=== PATIENT | male | born 1980 | race Caucasian/White ===

== ENCOUNTER → 2023-05-07 15:06 | Outpatient (REF) | payer OTHER, SELFPAY | LOC: HWRAD 15:06 | PROVIDERS: ATTENDING PHYSICIAN Internal Medicine Endocrinology, Diabetes & Metabolism; FAMILY PHYSICIAN Nurse Practitioner Family | DX: C73 Malignant neoplasm of thyroid gland (principal) | CPT/HCPCS: 76536 ==

== ENCOUNTER → 2024-05-04 14:12 | Outpatient (REF) | payer BC, SELFPAY | LOC: HWRAD 14:12 | PROVIDERS: ATTENDING PHYSICIAN Internal Medicine Endocrinology, Diabetes & Metabolism; FAMILY PHYSICIAN Nurse Practitioner Family | DX: C73 Malignant neoplasm of thyroid gland (principal) | CPT/HCPCS: 76536 ==

== ENCOUNTER → 2024-09-08 14:38 | Outpatient (REF) | payer BC, SELFPAY | LOC: HWRAD 14:38 | PROVIDERS: ATTENDING PHYSICIAN Internal Medicine Endocrinology, Diabetes & Metabolism; FAMILY PHYSICIAN Nurse Practitioner Family | DX: C73 Malignant neoplasm of thyroid gland (principal) | CPT/HCPCS: 76536 ==

== ENCOUNTER 2024-12-19 08:27 | Emergency (ER) | payer BC, SELFPAY ==
[2024-12-19 08:28] VITALS: BP 148/91
--- NOTE | 2024-12-19 08:49 | ED.SKININJ ---
HPI-Injury
General
Chief Complaint: Bite
Source: patient
Time Seen by Provider: 12/19/24 08:36
History of Present Illness-Injury
Initial Injury comments:
44-year-old male who states that he was in [place], walking into a parking garage, and saw a woman sitting down on the curb with her dog. He leaned down to pet the dog, and when he was walking away the dog snapped at him, causing injury to
bilateral legs. He did not describe the dog as poorly behaved, aggressive, etc. He did not inquire if the dog was up-to-date on immunizations. Patient looked in his portal and confirmed that he is up-to-date on tetanus. He is concerned about
potential exposure to rabies. This event happened approximately 2 weeks ago. The area of bite x 2 is nontender without drainage. He denies pain, fever, or other complaints.
Past History
Past History
ED Past Medical History: HTN and Other (Thyroid cancer)
ED Past Surgical History: Other (Hernia, thyroid)
Social History
Tobacco: Non-smoker
Alcohol: Occasional
Drug: None
Personal:
Phy Exam
Physical Exam
Physical Exam:
GENERAL: Alert , in no apparent distress
EYE: pupils equal and reactive
NECK: Supple, no significant adenopathy.
ENT: o/p clr, mmm.
CARDIAC: Regular rate and rhythm .
LUNGS: Clear breath sounds bilaterally, no acute respiratory distress, no wheezes/rales/rhonchi
ABDOMEN: Soft, without focal tenderness, no r/g, no cvat
NEUROLOGICAL: Alert and oriented, no focal neuro deficits
SKIN: Warm and dry, skin intact. At each thigh, there are 2 pinpoint areas of scab/healing without assoc erythema/warmth/drainage/ttp/streaking/fluctuance or other abnl
MUSCULOSKELETAL: No edema, well perfused.
PSYCH: Normal and appropriate interaction.
Course
Orders/Labs/Results
Orders:
Orders
12/19/24 09:06
Rabies Immune Globulin/Pf [HyperRAB] 2,076 unit IM NOW STA
12/19/24 10:15
Rabies Immune Globulin/Pf [HyperRAB] 2,076 unit IM NOW STA
Rabies Vaccine (Pcec)/Pf [Rabavert Rabies Vacc W-Diluent] 2.5 unit IM .ONCE ONE
Vital Signs
Initial and Last Documented VS:
Initial Vital Signs
Temp Resp BP Pulse Ox
98.4 F 16 148/91 98
12/19/24 08:28 12/19/24 08:28 12/19/24 08:28 12/19/24 08:28
Last Documented Vital Signs
Temp Resp BP Pulse Ox
98.4 F 16 148/91 98
12/19/24 08:28 12/19/24 08:28 12/19/24 08:28 12/19/24 08:55
*Pulse Oximetry
SaO2: 98
Oxygen Mode of Delivery: Room air
Patient hypoxic: no
*Critical Care Note
Total Time (30-74mins, 75-104mins- exclusive of procedures): Not Applicable
Update Note
Update Note:
Patient presents to the Emergency Department with dog bite
Number and Complexity of Problems Addressed at the Encounter
� Chronic conditions affecting care:
� Acute Exacerbation and/or Progression of Chronic Illness:
� Differential Diagnosis includes: But not limited to rabies exposure, infected wound, etc. etc.
Amount and/or Complexity of Data to be Reviewed and Analyzed
� I performed an independent evaluation of and my interpretation is:
EKG:
CT:
Xrays:
Laboratory Studies:
Other:
� Review of other/old records reveals:
� Clinical information was obtained by an independent historian:
� Prescriptions/Medications Considered but not given:
� Further testing considered but not performed:
Risk of Complications and/or Morbidity or Mortality of Patient Management
� Social determinants of health affecting care:
� Discussion with other providers (PCP, Hospitalists, Consultants, etc):
� Escalation of care including admission/observation vs risk of discharge considered: Patient did show me photographs from the area of wounds taken the next day after the event, there is clearly a very small area of penetration
of skin. Fortunately, no signs of infection noted. Potential for rabies exposure, patient will be given treatment accordingly, immunoglobulin and vaccine and instructions for subsequent vaccine. Risk and benefits discussed with patient.
ED Attending Note
-
Portions of this chart may have been created with voice recognition software.� Occasional wrong word or��sound alike� substitutions may have occurred due to the inherent limitations of voice recognition software.
Discharge Plan
Departure
Patient Disposition: Home (Routine Discharge)
Date of Disposition: 12/19/24
Time of Disposition: 09:00
Patient with high blood pressure during this ER visit?: Yes
Condition: Good
Discharge Problem:
Dog bite
Instructions: Animal Bites (DC), BLOOD PRESSURE, Rabies
Prescriptions:
New
rabies vacc,human diploid (PF) 2.5 unit recon soln
2.5 unit IM ONCE Qty: 3 0RF
Rx Instructions:
administer on 12/22, 12/25, 01/01
No Action
levothyroxine 125 MCG capsule
125 mcg PO DAILY
sennosides [senna] 1 TABLET tablet
2 tab PO BID 0RF
polyethylene glycol 3350 17 GRAMS powder in packet
17 grams PO DAILY 0RF
docusate sodium 100 MG capsule
100 mg PO BID 0RF
acetaminophen [Tylenol] 325 MG capsule
650 mg PO Q4HPRN PRN (Reason: mild pain) Qty: 30 0RF
Rx Instructions:
Do not exceed >4000 mg daily while on Percocet.
1 tab Percocet = 325 mg of Tylenol.
ondansetron HCl 4 MG tablet
4 mg PO Q6HPRN PRN (Reason: nausea) Qty: 15 0RF
Rx Instructions:
Take 1/2 hour prior to Percocet for recurrent nausea.
famotidine 20 MG tablet
20 mg PO DAILY Qty: 14 0RF
Rx Instructions:
Take daily for prevention of indigestion.
lorazepam 1 MG tablet
1 mg PO TIDPRN PRN (Reason: muscle spasms ) Qty: 20 0RF
Rx Instructions:
Caution with Percocet - can cause drowsiness.
Take only as directed/as needed.
oxycodone-acetaminophen [Percocet] 1 EACH tablet
0.5 - 1 tab PO Q6HPRN PRN (Reason: moderate-severe pain) Qty: 30 0RF
Rx Instructions:
1/2 tab for moderate pain, 1 if severe
dx ACDF
ongoing therapy
Stand Alone Forms: Rabies Vaccine Post Exp Dosing
Activity Restrictions/Additional Instructions:
PLEASE PROCEED TO THE [facility] FOR SUBSEQUENT DOSING OF RABIES VACCINE. THIS IS VERY IMPORTANT. SEE ATTACHED SCHEDULE/PRESCRIPTION.
Interventions
Interventions:
*Risk Screen - Suicide Last Done: 12/19/24 08:28
*General Assessment Last Done: 12/19/24 08:51
*Neglect/Abuse Screening Last Done: 12/19/24 08:28
*ED- Fall Risk Assessment Last Done: 12/19/24 08:51
*ED COVID-19 Vaccine History Last Done: 12/19/24 08:51
*ED Influenza Vaccine History Last Done: 12/19/24 08:51
*Nursing Disposition Last Done: 12/19/24 10:53
ED-Skin Assessment Last Done: 12/19/24 08:51
Discharge Date and Time
Discharge Date/Time: 12/19/24 10:55
Print Language: BRITISH
[2024-12-19 08:51] VITALS: BMI 31.9
[2024-12-19] MEDS: RABAVERT RABIES VACC W-DILUENT 2.5 UNIT IM (10:40)
== END 2024-12-19 10:55 | disposition home or self-care (01) ==
LOC: EMR 08:27
PROVIDERS: EMERGENCY PHYSICIAN Emergency Medicine; FAMILY PHYSICIAN Nurse Practitioner Family
DX: S71.152A Open bite, left thigh, initial encounter (principal); S71.151A Open bite, right thigh, initial encounter; W54.0XXA Bitten by dog, initial encounter; Y93.01 Activity, walking, marching and hiking; I10 Essential (primary) hypertension; Z20.3 Contact with and (suspected) exposure to rabies; Z23 Encounter for immunization; Z29.14 Encounter for prophylactic rabies immune globulin; Z85.850 Personal history of malignant neoplasm of thyroid
CPT/HCPCS: 99281; 90471; 96372; 90375; 90675

== ENCOUNTER 2025-01-01 14:22 | Outpatient (RCR) | payer BC, SELFPAY ==
[2024-12-22] MEDS: RABAVERT RABIES VACC W-DILUENT 2.5 UNIT IM (15:36)
[2024-12-22 15:38] VITALS: BP 148/84
[2024-12-25 14:20] VITALS: BP 138/75
[2024-12-25] MEDS: RABAVERT RABIES VACC W-DILUENT 2.5 UNIT IM (14:27)
[2025-01-01 14:29] VITALS: BP 138/83
[2025-01-01] MEDS: RABAVERT RABIES VACC W-DILUENT 2.5 UNIT IM (14:37)
== END 2025-01-04 10:29 | disposition home or self-care (01) ==
LOC: OID 14:22
PROVIDERS: ATTENDING PHYSICIAN Emergency Medicine
DX: Z20.3 Contact with and (suspected) exposure to rabies (principal); Z23 Encounter for immunization
CPT/HCPCS: 90471; 90675